=== PATIENT | male | born 1995 ===

== ENCOUNTER 2018-07-17 18:52 | Emergency (ER) | payer BC, OTHER ==
[~2018-07-17] VITALS: Ht 180.3 cm; Wt 117.9 kg
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
[2018-07-17] MEDS ORDERED: IBUPROFEN 800 MG (MOTRIN) TAB PO ONE (19:15)
[2018-07-17] MEDS ORDERED: CYCLOBENZAPRINE 10 MG (FLEXERIL) TAB PO SCH (19:15)
[2018-07-17] MEDS ORDERED: METH-313 PO (19:43)
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
[2018-07-17 20:32] VITALS: BP 121/89
== END 2018-07-17 20:34 | disposition home or self-care (01) ==
LOC: ER 18:54
DX: S16.1XXA Strain of muscle, fascia and tendon at neck level, initial encounter (principal); R40.2142 Coma scale, eyes open, spontaneous, at arrival to emergency department; R40.2252 Coma scale, best verbal response, oriented, at arrival to emergency department; R40.2362 Coma scale, best motor response, obeys commands, at arrival to emergency department; R07.9 Chest pain, unspecified; M79.671 Pain in right foot; M25.551 Pain in right hip; V48.5XXA Car driver injured in noncollision transport accident in traffic accident, initial encounter; Y92.410 Unspecified street and highway as the place of occurrence of the external cause
CPT/HCPCS: 71046; 72040; 73502; 73650